=== PATIENT | female | born 1990 | race Caucasian/White ===

== ENCOUNTER 2022-09-21 23:43 | Inpatient (IN) | payer OTHER ==
[~2022-09-21] VITALS: Ht 157.5 cm; Wt 133.4 kg
[2022-09-22] MEDS ORDERED: FOLI20CA PO (00:17)
[2022-09-22] MEDS ORDERED: PNV1TABL76 PO (00:17)
[2022-09-22] MEDS ORDERED: BUTORPHANOL TARTRATE 2 MG/ML VIAL IV PRN (01:15)
[2022-09-22] MEDS ORDERED: METHYLERGONOVINE MALEATE 0.2 MG/ML IM PRN ×3 (01:15→04:15)
[2022-09-22] MEDS ORDERED: CARBOPROST TROMETHAMINE 250 MCG/ML AMPUL IM PRN (01:15)
[2022-09-22] MEDS ORDERED: LIDOCAINE HCL 1% 20ML VIAL (Pyxis) INJ INFIL SCH (01:15)
[2022-09-22] MEDS ORDERED: NALOXONE HCL 0.4 MG/ML 1ML VIAL IM PRN (01:15)
[2022-09-22] MEDS ORDERED: LACTATED RINGERS 1,000 ML IV SCH (01:15)
[2022-09-22 01:26] LABS: BASOPHILS % 0.2 % (0.0-2.0); EOSINOPHILS % 0.3 % (0.0-5.0); HEMATOCRIT. 37.7 % (36.0-48.0); HEMOGLOBIN. 12.6 g/dL (12.0-16.0); LYMPHOCYTES % 16.9 % (20.0-50.0); MEAN CORPUSCULAR HEMOGLOBIN 28.7 pg (28.0-32.0); MEAN CORPUSCULAR VOLUME 86.1 fL (81.0-99.0); MEAN PLATELET VOLUME 10.4 fl (7.4-10.4); MONOCYTES % 7.2 % (2.0-8.0); NEUTROPHILS % 75.4 % (40.0-76.0); PLATELET 200 x1000/uL (130-400); RED BLOOD CELL COUNT 4.38 mill/uL (4.2-5.4); RED CELL DISTRIBUTION WIDTH 14.7 % (11.6-14.6)
[2022-09-22 01:34] LABS: CLARITY URINE CLEAR (CLEAR); COLOR URINE YELLOW (YELLOW); KETONES URINE NEGATIVE (NEGATIVE); LEUKOCYTE ESTERASE URINE TRACE (NEGATIVE); NITRITE URINE NEGATIVE (NEGATIVE); OCCULT BLOOD URINE 1+ (NEGATIVE); PH URINE 6.5 (4.5-8.0); PROTEIN URINE NEGATIVE (NEGATIVE); SPECIFIC GRAVITY URINE 1.005 (1.005-1.030); UROBILINOGEN URINE 0.2 E.U./dL (0.2-1.0)
[2022-09-22 01:40] LABS: INR 0.9; PROTHROMBIN TIME 9.6 sec (9.6-11.0)
[2022-09-22 02:16] LABS: *AMPHETAMINES SCREEN URINE NEGATIVE (NEGATIVE); *BARBITURATES SCREEN URINE NEGATIVE (NEGATIVE); *BENZODIAZEPINES SCREEN URINE NEGATIVE (NEGATIVE); *COCAINE SCREEN URINE NEGATIVE (NEGATIVE); CANNABINOID URINE SCREEN NEGATIVE (NEGATIVE); METHADONE URINE SCREEN NEGATIVE (NEGATIVE); OPIATES URINE SCREEN NEGATIVE (NEGATIVE); PHENCYCLIDINE URINE SCREEN NEGATIVE (NEGATIVE)
[2022-09-22] MEDS: OXYTOCIN 30 UNITS/500ML NS PMX 500 ML IV SCH ×2 (03:57→04:20)
[2022-09-22] MEDS ORDERED: IBUPROFEN 400MG TABLET PO PRN (04:15)
[2022-09-22] MEDS ORDERED: LANOLIN OINT 7GM TUBE TOP PRN (04:15)
[2022-09-22] MEDS ORDERED: RHO(D) IMMUNE GLOBULIN 300 MCG/SYR IM PRN (04:15)
[2022-09-22] MEDS ORDERED: DIPHENHYDRAMINE 25MG CAPSULE PO PRN (04:15)
[2022-09-22] MEDS ORDERED: HEMORRHOIDAL SUPP PR PRN (04:15)
[2022-09-22] MEDS ORDERED: OXYCODONE HCL/ACETAMINOPHEN 5/325MG TABLET PO PRN (04:15)
[2022-09-22] MEDS ORDERED: GLYCERIN/WITCH HAZEL LEAF MEDICATED PAD TOP PRN (04:15)
[2022-09-22] MEDS ORDERED: BISACODYL 10MG SUPP PR PRN (04:15)
[2022-09-22] MEDS ORDERED: OXYTOCIN 30 UNITS/500ML NS PMX 500 ML IV SCH (04:15)
[2022-09-22] MEDS ORDERED: BENZOCAINE/LANOLIN/ALOE VERA SPRAY TOP PRN (04:15)
[2022-09-22] MEDS ORDERED: IBUPROFEN 800MG TABLET PO PRN (04:15)
[2022-09-22 04:39] LABS: HEPATITIS B SURFACE ANTIGEN NEGATIVE
[2022-09-22] MEDS: MAGNESIUM/ALUMINUM HYDROXIDE/SIMETHICONE 30ML UDC PO SCH ×3 (07:30→21:26)
[2022-09-22 08:00] VITALS: BP 91/51
[2022-09-22] MEDS ORDERED: METHYLERGONOVINE MALEATE 0.2MG TABLET PO SCH (09:00)
[2022-09-22] MEDS: SIMETHICONE 80MG TABLET CHEW PO SCH ×3 (09:12→21:26)
[2022-09-22 16:00] VITALS: BP 103/62
[2022-09-22] MEDS: PRENATAL VIT/FE FUMARATE/FA TABLET PO SCH (17:31)
[2022-09-22 19:30] VITALS: BP 101/62
[2022-09-22] MEDS ORDERED: DOCUSATE SODIUM 100MG CAPSULE PO SCH (21:00)
[2022-09-23 04:00] VITALS: BP 97/64
[2022-09-23 06:46] LABS: BASOPHILS % 0.1 % (0.0-2.0); EOSINOPHILS % 0.6 % (0.0-5.0); HEMATOCRIT. 37.2 % (36.0-48.0); HEMOGLOBIN. 12.2 g/dL (12.0-16.0); LYMPHOCYTES % 25.4 % (20.0-50.0); MEAN CORPUSCULAR HEMOGLOBIN 28.8 pg (28.0-32.0); MEAN CORPUSCULAR VOLUME 87.5 fL (81.0-99.0); MEAN PLATELET VOLUME 10.3 fl (7.4-10.4); NEUTROPHILS % 64.9 % (40.0-76.0); PLATELET 183 x1000/uL (130-400); RED BLOOD CELL COUNT 4.25 mill/uL (4.2-5.4); RED CELL DISTRIBUTION WIDTH 15.2 % (11.6-14.6)
[2022-09-23] MEDS ORDERED: FERROUS SULFATE 325MG TABLET PO SCH (07:30)
[2022-09-23 08:00] VITALS: BP 99/69
[2022-09-23] MEDS: MAGNESIUM/ALUMINUM HYDROXIDE/SIMETHICONE 30ML UDC PO SCH (08:49)
[2022-09-23] MEDS: PRENATAL VIT/FE FUMARATE/FA TABLET PO SCH (08:49)
[2022-09-23] MEDS: SIMETHICONE 80MG TABLET CHEW PO SCH (08:49)
== END 2022-09-23 17:01 | disposition home or self-care (01) | DRG 560 ==
LOC: OBSVTOIN 23:43 → 8 EST LDRP 23:43 → 8EST 09-22 06:27
PROVIDERS: ADMIT Obstetrics & Gynecology; ATTEND Obstetrics & Gynecology
PROC: 10E0XZZ Delivery of Products of Conception, External Approach (ICD-10-PCS; principal; 2022-09-22)
PROC: 3E0R3BZ Introduction of Anesthetic Agent into Spinal Canal, Percutaneous Approach (ICD-10-PCS; 2022-09-22)
PROC: 00HU33Z Insertion of Infusion Device into Spinal Canal, Percutaneous Approach (ICD-10-PCS; 2022-09-22)
DX: O80 Encounter for full-term uncomplicated delivery (principal); Z37.0 Single live birth; Z20.822 Contact with and (suspected) exposure to COVID-19; Z3A.39 39 weeks gestation of pregnancy
CPT/HCPCS: 36415; 80305; 81003; 85025; 86592; 86762; 86850; 86900; 87340; 87426; 99281; J0595; J3490; J7120; J2590

== ENCOUNTER 2024-04-03 00:40 | Emergency (ER) | payer OTHER ==
[~2024-04-03] VITALS: Ht 160 cm; Wt 102.0 kg
[2024-04-03 00:54] VITALS: BP 125/90; PULSE 76; RESP 16; TEMP 98.1; O2SAT 99
[2024-04-03 01:57] LABS: BASOPHILS % 0.4 % (0.0-2.0); EOSINOPHILS % 2.3 % (0.0-5.0); HEMATOCRIT. 40.2 % (36.0-48.0); HEMOGLOBIN. 12.9 g/dL (12.0-16.0); LYMPHOCYTES % 27.5 % (20.0-50.0); MEAN CORPUSCULAR HEMOGLOBIN 27.6 pg (28.0-32.0); MEAN CORPUSCULAR HGB CONC 32.2 g/dL (31.0-37.0); MEAN CORPUSCULAR VOLUME 85.8 fL (81.0-99.0); MONOCYTES % 8.2 % (2.0-8.0); NEUTROPHILS % 61.6 % (40.0-76.0); PLATELET 260 x1000/uL (130-400); RED BLOOD CELL COUNT 4.68 mill/uL (4.2-5.4); RED CELL DISTRIBUTION WIDTH 15.2 % (11.6-14.6); WHITE BLOOD COUNT 5.8 x1000/uL (4.5-11.0)
[2024-04-03 01:59] LABS: CHLORIDE 105 mEq/L (98-107); POTASSIUM 3.3 mEq/L (3.5-5.1); SODIUM 138 mEq/L (136-145)
[2024-04-03 02:00] LABS: CARBON DIOXIDE 25 mEq/L (21-32)
[2024-04-03 02:01] LABS: CALCIUM 9.3 mg/dL (8.7-10.4)
[2024-04-03 02:06] LABS: CREATININE 0.7 mg/dL (0.6-1.0); GLUCOSE 105 mg/dL (70-105); UREA NITROGEN BLOOD 6 mg/dL (9-23)
[2024-04-03 03:09] LABS: CLARITY URINE CLEAR (CLEAR); COLOR URINE DARK YELLOW (YELLOW); GLUCOSE URINE NEGATIVE (NEGATIVE); KETONES URINE TRACE (NEGATIVE); LEUKOCYTE ESTERASE URINE 2+ (NEGATIVE); NITRITE URINE NEGATIVE (NEGATIVE); OCCULT BLOOD URINE NEGATIVE (NEGATIVE); PH URINE 6.5 (4.5-8.0); PROTEIN URINE TRACE (NEGATIVE); SPECIFIC GRAVITY URINE 1.021 (1.005-1.030)
[2024-04-03 06:48] LABS: SQUAMOUS EPITHELIAL CELL URINE 2+ /lpf (RARE/1+)
[2024-04-03 06:49] LABS: BACTERIA URINE NONE SEEN; RBC URINE 0-2 /hpf (0-2)
== END 2024-04-03 04:32 | disposition left against medical advice (07) ==
LOC: ER 00:40
DX: R10.9 Unspecified abdominal pain (principal); Z53.21 Procedure and treatment not carried out due to patient leaving prior to being seen by health care provider
CPT/HCPCS: 36415; 80048; 81003; 81025; 85025

== ENCOUNTER 2024-04-03 18:32 | Emergency (ER) | payer OTHER ==
[~2024-04-03] VITALS: Ht 160 cm; Wt 90.0 kg
[2024-04-03 18:38] VITALS: O2SAT 98
[2024-04-03 19:12] LABS: BASOPHILS % 0.4 % (0.0-2.0); EOSINOPHILS % 2.2 % (0.0-5.0); HEMATOCRIT. 38.6 % (36.0-48.0); LYMPHOCYTES % 24.1 % (20.0-50.0); MEAN CORPUSCULAR HEMOGLOBIN 28.6 pg (28.0-32.0); MEAN CORPUSCULAR HGB CONC 33.6 g/dL (31.0-37.0); MEAN CORPUSCULAR VOLUME 85.2 fL (81.0-99.0); MEAN PLATELET VOLUME 8.8 fl (7.4-10.4); MONOCYTES % 8.1 % (2.0-8.0); NEUTROPHILS % 65.2 % (40.0-76.0); PLATELET 262 x1000/uL (130-400); RED BLOOD CELL COUNT 4.53 mill/uL (4.2-5.4); RED CELL DISTRIBUTION WIDTH 14.5 % (11.6-14.6); WHITE BLOOD COUNT 5.6 x1000/uL (4.5-11.0)
[2024-04-03 19:16] LABS: CHLORIDE 106 mEq/L (98-107); POTASSIUM 3.3 mEq/L (3.5-5.1); SODIUM 140 mEq/L (136-145)
[2024-04-03 19:17] LABS: CARBON DIOXIDE 24 mEq/L (21-32)
[2024-04-03 19:18] LABS: CALCIUM 9.7 mg/dL (8.7-10.4)
[2024-04-03 19:22] LABS: CREATININE 0.8 mg/dL (0.6-1.0); GLUCOSE 124 mg/dL (70-105)
[2024-04-03 19:23] LABS: UREA NITROGEN BLOOD 9 mg/dL (9-23)
[2024-04-03 19:24] LABS: ALANINE AMINOTRANSFERASE 598 IU/L (10-49); ASPARTATE AMINOTRANSFERASE 301 IU/L (<34)
[2024-04-03 19:25] LABS: BILIRUBIN DIRECT 3.1 mg/dL (<=3.0); BILIRUBIN TOTAL 3.8 mg/dL (0.1-1.0); PROTEIN TOTAL 8.3 g/dL (6.0-8.3)
[2024-04-03] MEDS: HYDROCODONE/ACETAMINOPHEN 5/325MG TABLET PO ONE (22:00)
[2024-04-03] MEDS: HYDROCODONE/ACETAMINOPHEN 10/325MG TABLET PO NR (23:06)
[2024-04-03] MEDS: SODIUM CHLORIDE 0.9% 1,000 ML IV ONE (23:06)
[2024-04-03] MEDS: KETOROLAC 30MG/ML VIAL IV NR (23:07)
[2024-04-03] MEDS: ONDANSETRON HCL 4MG/2ML INJ IV NR (23:07)
[2024-04-03] MEDS: CEFTRIAXONE 1GM/50ML 50 ML IV NR (23:17)
[2024-04-03] MEDS: METRONIDAZOLE 500 MG PREMIX 100 ML IV NR (23:27)
[2024-04-04] MEDS: POTASSIUM CHLORIDE 20MEQ TABLET SR PO NR (01:00)
[2024-04-04 06:22] LABS: HEPATITIS B SURFACE ANTIGEN NEGATIVE (Negative)
[2024-04-04 06:43] LABS: HEPATITIS A AB IGM NEGATIVE (Negative)
[2024-04-04 06:44] LABS: HEPATITIS B CORE AB IGM NEGATIVE (Negative); HEPATITIS C AB NON REACTIVE (Neg) (Negative)
[2024-04-04 06:45] VITALS: BP 124/86; PULSE 89; RESP 17; TEMP 98.2
[2024-04-04] MEDS ORDERED: GUAIFENESIN 200MG/10ML SUGAR FREE UDC PO PRN (08:00)
[2024-04-04] MEDS ORDERED: ONDANSETRON HCL 4MG/2ML INJ IV PRN (08:00)
[2024-04-04] MEDS ORDERED: IPRATROPIUM/ALBUTEROL 0.5-3(2.5)MG/3ML NEB HHN PRN (08:00)
[2024-04-04] MEDS ORDERED: KETOROLAC 15MG/ML VIAL IV PRN (08:00)
[2024-04-04] MEDS ORDERED: PANTOPRAZOLE SODIUM 40 MG/VIAL IV SCH (08:00)
[2024-04-04] MEDS ORDERED: DOCUSATE SODIUM 100MG CAPSULE PO PRN (08:00)
[2024-04-04] MEDS ORDERED: CLONIDINE 0.1MG TABLET PO PRN (08:00)
[2024-04-04] MEDS ORDERED: MAGNESIUM/ALUMINUM HYDROXIDE/SIMETHICONE 30ML UDC PO PRN (08:00)
[2024-04-04] MEDS ORDERED: DEXT 5%/0.45% NACL 1000ML 1,000 ML IV SCH (09:00)
[2024-04-04 09:04] LABS: CHLORIDE 108 mEq/L (98-107); POTASSIUM 3.7 mEq/L (3.5-5.1); SODIUM 138 mEq/L (136-145)
[2024-04-04 09:05] LABS: CALCIUM 9.4 mg/dL (8.7-10.4); CARBON DIOXIDE 22 mEq/L (21-32)
[2024-04-04 09:10] LABS: CREATININE 0.6 mg/dL (0.6-1.0); GLUCOSE 82 mg/dL (70-105)
[2024-04-04 09:11] LABS: LDL CHOLESTEROL 142 mg/dL (5-100); TRIGLYCERIDE 91 mg/dL (0-150); UREA NITROGEN BLOOD 7 mg/dL (9-23)
[2024-04-04 09:12] LABS: ALANINE AMINOTRANSFERASE 500 IU/L (10-49); ALBUMIN 4.3 g/dL (3.2-4.8); ASPARTATE AMINOTRANSFERASE 245 IU/L (<34); CHOLESTEROL 202 mg/dL (<200); HDL CHOLESTEROL 43 mg/dL (>65)
[2024-04-04 09:13] LABS: BILIRUBIN TOTAL 3.6 mg/dL (0.1-1.0); PROTEIN TOTAL 7.3 g/dL (6.0-8.3)
== END 2024-04-04 10:24 | disposition left against medical advice (07) ==
LOC: ER 18:32 → CANBEDREQ 04-04 10:22 → ER 04-04 10:24
DX: K80.20 Calculus of gallbladder without cholecystitis without obstruction (principal); R10.11 Right upper quadrant pain; K72.00 Acute and subacute hepatic failure without coma; E78.5 Hyperlipidemia, unspecified; E11.9 Type 2 diabetes mellitus without complications
CPT/HCPCS: 80076; 80048; 83690; 85025; 87340; 36415 ×2; 86705; 86709; 96368; 96365; 96375; 99285; 80061; 80053; 82248; 83036; 83735; 84100; 76700; J0696; J1885; J3490; J2405 ×2; Z7610 ×4; J2470